=== PATIENT | male | born 1995 | race Two or more races ===

== ENCOUNTER 2024-09-06 23:19 | Emergency (ER) | payer SELFPAY ==
[2024-09-06] MEDS: Ketorolac 30 MG/ML SDV IM ONE (23:47)
== END 2024-09-06 23:59 | disposition home or self-care (01) ==
LOC: MW.ED 23:19
DX: S89.91XA Unspecified injury of right lower leg, initial encounter (principal); X50.0XXA Overexertion from strenuous movement or load, initial encounter; Y93.89 Activity, other specified
CPT/HCPCS: 96372; 99283; J1885